=== PATIENT | male | born 1995 | race Caucasian/White ===

== ENCOUNTER 2019-07-01 08:00 | Outpatient (CLI) | payer BC, OTHER ==
--- NOTE | 2019-07-01 16:17 | XRAY Report ---
Reason: RIGHT RIB PAIN Procedure Date: 07/01/2019 Accession Number: [id number] / [id number] Procedure: WCP - Ribs 2 View RT CPT Code: FULL RESULT: EXAM: RIGHT RIB RADIOGRAPHY EXAM DATE: 07/01/2019 12:03 PM. CLINICAL HISTORY: RIGHT RIB PAIN. Post trauma COMPARISON: None. TECHNIQUE: 2 views. FINDINGS: Bones: No fracture or bone lesion. Lungs: Included portion of the right hemithorax shows clear right lung. IMPRESSION: Normal two-view right rib radiography. Comment: If symptoms persist consider follow-up imaging 10-14 days. RADIA
--- NOTE | 2019-07-01 16:19 | XRAY Report ---
Reason: LEFT WRIST PAIN Procedure Date: 07/01/2019 Accession Number: [id number] / [id number] Procedure: WCP - Wrist 4 View LT CPT Code: FULL RESULT: EXAM: LEFT WRIST RADIOGRAPHY EXAM DATE: 07/01/2019 11:52 AM. CLINICAL HISTORY: LEFT WRIST PAIN. COMPARISON: None. TECHNIQUE: 4 views. FINDINGS: Bones: Nondisplaced left navicular waist fracture. Joints: No significant degenerative change. No subluxations. Soft Tissues: Mild soft tissue swelling. IMPRESSION: Nondisplaced left navicular fracture. RADIA
== END 2019-07-01 23:59 | disposition home or self-care (01) ==
LOC: DI.WCP 08:00
PROVIDERS: ATTEND Physician Assistant
DX: R07.81 Pleurodynia (principal); S62.002A Unspecified fracture of navicular [scaphoid] bone of left wrist, initial encounter for closed fracture

== ENCOUNTER 2021-07-28 13:34 | Emergency (ER) | payer BC, OTHER ==
[2021-07-28 13:44] VITALS: BP 113/81
--- NOTE | 2021-07-28 14:12 | ED Physician Documentation ---
PD HPI ABD PAIN - Stated complaint Stated Complaint: MALE - Chief complaint Chief Complaint: Abd Pain - History of Present Illness Associated symptoms: Constipation - Additional information Additional information: Patient is otherwise healthy 26-year-old male presenting to the emergency department chief complaint of constipation. Endorses for constipation ongoing for the last 10 to 14 days. Does report took prune juice and oral laxatives yesterday and had large watery BM. Denies for any blood in stool. He denies for any family historyPatient is otherwise healthy 26-year-old male presenting to the emergency department chief complaint of constipation. Endorses for constipation ongoing for the last 10 to 14 days. Does report took prune juice and oral laxatives yesterday and had large watery BM. Denies for any blood in stool. He denies for any family history Review of Systems Ten Systems: 10 systems reviewed and negative Constitutional: denies: Fever Eyes: denies: Loss of vision Ears: denies: Loss of hearing Nose: denies: Rhinorrhea / runny nose Throat: denies: Dental pain / toothache Cardiac: denies: Chest pain / pressure Respiratory: denies: Dyspnea GI: reports: Constipation PD PAST MEDICAL HISTORY - Present Medications Home Medications: Ambulatory Orders Medication Instructions Recorded Confirmed Docusate Sodium 100Mg Capsule 100 mg PO DAILY #30 cap 07/28/21 [Colace 100Mg Capsule] Fexofenadine/Pseudoephedrine 1 each PO DAILY 07/28/21 07/28/21 [Janette-D 12 Hour Tablet] Magnesium Citrate 296 ml PO ONCE PRN #296 ml 07/28/21 Saline Enema [Fleets Saline Enema] 133 ml RC ONCE #1 bottle 07/28/21 polyethylene glycoL 3350 [Miralax] 17 gm PO DAILY PRN #1 bottle 07/28/21 - Allergies Allergies/Adverse Reactions: Allergies Allergy/AdvReac Type Severity Reaction Status Date / Time No Known Drug Allergies Allergy Verified 07/28/21 13:40 PD ED PE NORMAL - Vitals Vital signs reviewed: Yes - General General: Alert and oriented X 3 - HEENT HEENT: Atraumatic - Neck Neck: Supple, no meningeal sign - Cardiac Cardiac: RRR - Respiratory Respiratory: No respiratory distress - Abdomen Abdomen: Normal bowel sounds, Soft, Non tender, Non distended, No organomegaly - Male Male : Other (Brown stool in the rectal vault, no impaction, no hemorrhoids, no fissures.) - Back Back: No CVA TTP - Derm Derm: Normal color - Extremities Extremities: No deformity - Neuro Neuro: Alert and oriented X 3, sql ssrs developer 2-12 intact, No motor deficit Results - Vitals Vitals: Vital Signs - 24 hr 07/28/21 13:40 Temperature 36.7 C Heart Rate 93 Respiratory 18 Rate Blood Pressure 113/81 H O2 Saturation 97 Oxygen O2 Source Room air PD MEDICAL DECISION MAKING - ED course Complexity details: d/w patient ED course: An otherwise healthy 26-year-old male presenting to the emergency department with constipation. Physical exam very reassuring his abdomen is soft, nontender without guarding, rebound or rigidity. He denied any fever, nausea vomiting, history of surgical procedures in the past and his clinical presentation is not consistent with obstruction. Rectal exam performed in the emergency department with car hop present did not demonstrate any impacted oral or other abnormalities. I will discharge at this time with a bowel regimen for the patient to take. Encourage careful follow-up with primary care or return to the emergency department for new or worsening symptoms Departure - Departure Disposition: 01 Home, Self Care Clinical Impression: Constipation Condition: Good Instructions: ED Constipation Prescriptions: Docusate Sodium 100Mg Capsule [Colace 100Mg Capsule] 100 mg PO DAILY #30 cap Saline Enema [Fleets Saline Enema] 133 ml RC ONCE #1 bottle Magnesium Citrate 296 ml PO ONCE PRN #296 ml PRN Reason: Constipation polyethylene glycoL 3350 [Miralax] 17 gm PO DAILY PRN #1 bottle PRN Reason: Constipation Comments: Thank you for allowing us to care for you today at [facility]. Please increase your intake and fiber full foods, fluids. I also recommend modest physical activity daily. I will be discharging you with the medications to take at home to help with your symptoms. If it anytime you develop any new or worsening abdominal pain, develop any fever, nausea or vomiting please return to the emergency department. Prescriptions were sent to [facility] [place] Discharge Date/Time: 07/28/21 14:33
== END 2021-07-28 14:33 | disposition home or self-care (01) ==
LOC: ED 13:34
DX: K59.00 Constipation, unspecified (principal)
CPT/HCPCS: 99283

== ENCOUNTER 2021-08-06 13:13 | Outpatient (CLI) | payer OTHER ==
[2021-08-06 18:25] LABS: CALCIUM 9.7 mg/dL (8.5-10.3); CREATININE 0.8 mg/dL (0.6-1.2); POTASSIUM 4.1 mmol/L (3.5-5.0)
[2021-08-06 18:48] LABS: THYROID STIMULATING HORMONE 0.59 uIU/mL (0.34-5.60)
== END 2021-08-06 23:59 | disposition home or self-care (01) ==
LOC: LAB.WCP 13:13
PROVIDERS: ATTEND Family Medicine
DX: K59.00 Constipation, unspecified (principal)
CPT/HCPCS: 36415; 80048; 84443

== ENCOUNTER 2021-09-19 17:34 | Outpatient (CLI) | payer OTHER ==
--- NOTE | 2021-09-19 18:35 | XRAY Report ---
PROCEDURE: Abdomen 2 View X-Ray INDICATIONS: ABDOMEN PAIN TECHNIQUE: 2 views of the abdomen were acquired. COMPARISON: None. FINDINGS: ABDOMEN: Dilatation of the small bowel, measuring up to 5.3 cm, compatible with ileus or partial obst ruction. Gas is seen within the transverse colon. BONES/SOFT TISSUES: No acute abnormality. IMPRESSION: 1.Dilatation of the small bowel as detailed above. Reviewed by: Celestine Kirk MD on 09/19/2021 6:34 PM [facility] Approved by: Celestine Kirk MD on 09/19/2021 6:34 PM [facility] Station ID: [id number]
== END 2021-09-19 17:35 | disposition home or self-care (01) ==
LOC: DI 17:34
PROVIDERS: ATTEND Internal Medicine Gastroenterology
DX: R10.9 Unspecified abdominal pain (principal); K63.89 Other specified diseases of intestine